=== PATIENT | male | born 1960 | race Caucasian/White ===

== ENCOUNTER → 2023-04-12 17:22 | Outpatient (REF) | payer OTHER, SELFPAY | LOC: MRI 17:22 | PROVIDERS: ATTENDING PHYSICIAN Specialist; FAMILY PHYSICIAN Family Medicine | DX: D18.03 Hemangioma of intra-abdominal structures (principal) | CPT/HCPCS: 74183; A9575 ==

== ENCOUNTER → 2023-09-19 17:28 | Outpatient (REF) | payer OTHER, SELFPAY | LOC: MRI 3T 17:28 | PROVIDERS: ATTENDING PHYSICIAN Psychiatry & Neurology Neurology; FAMILY PHYSICIAN Family Medicine | DX: R25.2 Cramp and spasm (principal); E53.8 Deficiency of other specified B group vitamins | CPT/HCPCS: 72141 ==

== ENCOUNTER 2024-02-20 06:18 | Day surgery (SDC) | payer OTHER, SELFPAY | END 2024-02-20 16:20 | disposition home or self-care (01) | LOC: GI 06:18 | PROVIDERS: ATTENDING PHYSICIAN Specialist; FAMILY PHYSICIAN Family Medicine | DX: Z12.11 Encounter for screening for malignant neoplasm of colon (principal); D12.3 Benign neoplasm of transverse colon; K56.2 Volvulus; K57.30 Diverticulosis of large intestine without perforation or abscess without bleeding; Z86.0101 Personal history of adenomatous and serrated colon polyps | CPT/HCPCS: 45385; 88305 ==

== ENCOUNTER → 2024-03-28 09:28 | Outpatient (REF) | payer OTHER, SELFPAY | LOC: REG 09:28 | PROVIDERS: ATTENDING PHYSICIAN Physician Assistant Medical; FAMILY PHYSICIAN Family Medicine | DX: R06.09 Other forms of dyspnea (principal); R42 Dizziness and giddiness | CPT/HCPCS: 71046 ==

== ENCOUNTER 2024-08-22 06:20 | Day surgery (SDC) | payer OTHER, SELFPAY | END 2024-08-22 11:37 | disposition home or self-care (01) | LOC: GI 06:20 | PROVIDERS: ATTENDING PHYSICIAN Specialist | DX: R12 Heartburn (principal); K31.7 Polyp of stomach and duodenum; K22.70 Barrett's esophagus without dysplasia; K31.89 Other diseases of stomach and duodenum; K20.90 Esophagitis, unspecified without bleeding; K31.A0 Gastric intestinal metaplasia, unspecified | CPT/HCPCS: 43239; 88305 ==

== ENCOUNTER 2024-08-24 09:31 | Emergency (ER) | payer OTHER, SELFPAY ==
[2024-08-24 09:40] VITALS: BP 128/80
[2024-08-24] MEDS: DILAUDID 0.5 MG IV (10:47)
[2024-08-24] MEDS: NSS 1000 IV (10:47)
[2024-08-24 10:58] LABS: % Basophils 0.2 % (0-2); % Eosinophils 0.7 % (0-6); % Immature Granulocytes 0.5 % (0-0.5); % Lymphocytes 9.3 % (20.5-51.1); % Monocytes 8.9 % (1.7-9.3); % Neutrophils 80.4 % (42.2-75.2); Absolute Eosinophils 0.1 10^3/uL (0-0.7); Absolute Immature Granulocytes 0.1 10^3/uL (0-0.05); Absolute Lymphocytes 1.4 10^3/uL (1.2-3.4); Absolute Monocytes 1.4 10^3/uL (0.1-0.6); Absolute Neutrophils 12.3 10^3/uL (1.4-6.5); Hematocrit 47.1 % (39.0-52.0); Hemoglobin 16.6 g/dL (13.0-18.0); Mean Corp Hgb Conc. 35.2 g/dL (33.0-37.0); Mean Corpuscular Hgb 29.1 pg (27.0-31.0); Mean Corpuscular Volume 82.5 fL (80.0-94.0); Mean Platelet Volume 9.9 fL (7.4-10.4); Nucleated Red Blood Cells % 0 % (-); Platelet Count 243 10^3/uL (130-400); Red Blood Cell Count 5.71 10^6/uL (4.70-6.10); Red Cell Dist. Width 13.1 % (11.5-14.5); White Blood Cell Count 15.2 10^3/uL (4.8-10.8)
[2024-08-24] MEDS: BENADRYL 12.5 MG IV (10:58)
[2024-08-24] MEDS: DECADRON 10 MG IV (10:58)
[2024-08-24 11:00] VITALS: BP 133/87
[2024-08-24 11:09] LABS: INR 0.95
--- NOTE | 2024-08-24 11:17 | ED.GENMED ---
History of Present Illness
General
Chief Complaint: Facial Problem
Source: patient
Exam Limitations: none
Time Seen by Provider: 08/24/24 10:18
Nursing documentation reviewed up to this point in time: agreed with
History of Present Illness
History of Present Illness:
see MDM
Past History
Past History
ED Past Medical History: None
ED Past Surgical History: None
Social History
Tobacco: Non-smoker
Personal:
Living: with family
Review of Systems
Review of Systems
Allergies reviewed?: Yes
All Other Systems: Not applicable
Phy Exam
Physical Exam
Physical Exam:
see MDM
Course
Orders/Labs/Results
Orders:
Orders
08/24/24 10:32
CT Neck With Iv Contrast Urgent
Comment:
Reason For Exam: concern for esophageal perf;
0.9% Sodium Chloride 1000 ml [Nss] 1,000 ml IV BOLUS
HYDROmorphone [Dilaudid] 0.5 mg IV NOW STA
08/24/24 10:39
CT Chest With Iv Contrast Urgent
Comment:
Reason For Exam: endoscopy; now with neck swelling; eval perf
08/24/24 10:44
Dexamethasone Sod Phosphate [Decadron] 10 mg IV NOW STA
Diphenhydramine [Benadryl] 12.5 mg IV NOW STA
08/24/24 10:49
Basic Metabolic Panel Urgent
Complete Blood Count/With Diff Urgent
Lactic Acid Urgent
PTT Urgent
Prothrombin Time Urgent
08/24/24 13:57
Amoxicillin 875 mg/Clav 125 mg [Augmentin 875 mg/125 mg] 1 tablet PO NOW STA
08/24/24 14:03
Mumps Virus IgM [S] Urgent
Abnormal Lab Results
08/24/24
10:49
WBC 15.2 H 10^3/uL
(4.8-10.8)
Abs Immat Gran (auto) 0.1 H 10^3/uL
(0-0.05)
Absolute Neuts (auto) 12.3 H 10^3/uL
(1.4-6.5)
Absolute Monos (auto) 1.4 H 10^3/uL
(0.1-0.6)
Neutrophils % 80.4 H %
(42.2-75.2)
Lymphocytes % 9.3 L %
(20.5-51.1)
08/24/24 10:49
08/24/24 10:49
Vital Signs
Initial and Last Documented VS:
Initial Vital Signs
Temp Pulse Resp BP Pulse Ox
37.1 C 79 18 128/80 97
08/24/24 09:40 08/24/24 09:40 08/24/24 09:40 08/24/24 09:40 08/24/24 09:40
Last Documented Vital Signs
Temp Pulse Resp BP Pulse Ox
37.1 C 84 19 139/99 93
08/24/24 09:40 08/24/24 14:00 08/24/24 14:00 08/24/24 14:00 08/24/24 14:00
MDM/Problems Addressed
Differential Diagnosis Includes:
see MDM
MDM/Problems Addressed:
Note:
CHIEF COMPLAINT(S)
Jaw swelling and pain
HISTORY OF PRESENT ILLNESS
The patient is a 64-year-old male with a history of gastroesophageal reflux disease, hiatal hernia, arthritis, and asthma, presenting with R sided jaw swelling and pain. The symptoms began the day after an endoscopy performed two days prior, for
evaluation of esophagitis and hiatal hernia. Initially, the patient felt as though it were a muscular strain in the jaw, which progressively worsened with swelling as the day continued. The pain is associated with difficulty swallowing (�hurts to
swallow�) and hoarseness. The patient denies fever, chills, ear discomfort, or respiratory difficulty. There is no history of recent illness. The patient did not take any pain medication for relief. His voice is hoarse, which he attributes to his
jaw pain and is not related to asthma. The patient�s skin color is notably pinkish, but it is consistent with his normal complexion. He has a history of past ear infections but states this current sensation does not resemble those experiences.
The patient does not recall using strong pain medication in the past and reports no known allergies. He denies being on any immunosuppressive medication.
ALLERGIES
None reported.
PAST MEDICAL HISTORY
- Gastroesophageal reflux disease
- Hiatal hernia
- Rheumatoid arthritis
- Asthma
IMMUNIZATION HISTORY
The patient states he received vaccinations in childhood, including MMR.
REVIEW OF SYSTEMS
- Ear, Nose, and Throat: Jaw pain, hoarseness, difficulty swallowing.
- Respiratory: No difficulty breathing.
- General: No fever, no chills.
PHYSICAL EXAM
Nursing notes reviewed and vital signs reviewed.
GENERAL: Alert , in no apparent distress
EYE: pupils equal and reactive
NECK: Supple
obvious R sided swelling submandibular near parotid region on the R with tenderness; mild erythema;
no obvious crepitus;
breathing normally
ENT: b/l TM s clear, mild trismus 2.5 fingers; no obvious parotid swelling, no sublingual swelling, no submental swelling; slightly horase voice; tolerating secretions
CARDIAC: Regular rate and rhythm, no edema
LUNGS: Clear breath sounds bilaterally, no acute respiratory distress, no wheezes/rales/rhonchi, occ cough
ABDOMEN: Soft, without focal tenderness, no r/g, no cvat, normal bowel sounds
NEUROLOGICAL: Alert and oriented, no focal neuro deficits
SKIN: Warm and dry, skin intact.
MUSCULOSKELETAL: No edema, well perfused.
PSYCH: Normal and appropriate interaction.
PLAN
- CT scan of the neck with contrast to evaluate the area of swelling.
- Initiate IV access for pain medication and blood work.
DIFFERENTIAL DIAGNOSIS
The Differential Diagnosis includes, in no particular order and is not limited to:
- Parotitis
- Parapharyngeal abscess
- Dental infection
- Submandibular gland infection
- Mumps
- Lymphadenopathy
- Angioedema
- Peritonsillar abscess
- Hematoma post-endoscopy
- Esophageal perforation (less likely)
Patient CT scan reviewed with him. Patient has a evidence of sialoadenitis and possibly parotitis. There is no obvious stone. There is no airway compromise. There is no collection. Patient actually noticeably appears improved likely secondary
to the Decadron used prior to CT scan. He feels less swollen and has less hoarseness to his voice. Patient advised to suck on sour candy, take ibuprofen with food for pain and inflammation and we will place him on Augmentin. Did send out a mumps
IgM
For outpatient follow-up
*Pulse Oximetry
SaO2: 92
Oxygen Mode of Delivery: Room air
*Critical Care Note
Total Time (30-74mins, 75-104mins- exclusive of procedures): Not Applicable
ED Attending Note
-
Portions of this chart may have been created with voice recognition software.� Occasional wrong word or��sound alike� substitutions may have occurred due to the inherent limitations of voice recognition software.
Discharge Plan
Departure
Patient Disposition: Home (Routine Discharge)
Date of Disposition: 08/24/24
Time of Disposition: 13:50
Patient with high blood pressure during this ER visit?: No
Condition: Fair
Covid-19: Not Applicable
Discharge Problem:
Acute bacterial sialadenitis
Instructions: Salivary Gland Infection (DC)
Prescriptions:
New
amoxicillin-pot clavulanate 875-125 mg tablet
1 tab PO BID Qty: 14 0RF
No Action
pantoprazole 40 mg Tablet,Delayed Release (Dr/Ec)
40 mg PO DAILY
montelukast [Singulair] 10 mg Tablet
10 mg PO DAILY
albuterol sulfate [ProAir HFA] 90 mcg/actuation Hfa Aerosol Inhaler
2 puff INHALATION QID PRN (Reason: wheezing)
fluticasone propionate 50 mcg/actuation [place],Suspension
1 spray INTRANASAL DAILY
budesonide-formoterol [Symbicort] 80-4.5 mcg/actuation Hfa Aerosol Inhaler
1 puff INHALATION DAILY
Referrals:
Terrie Russo MD [Family Provider, Family Practice]
Activity Restrictions/Additional Instructions:
Take Augmentin twice a day for the infection of your salivary gland. It could be mumps which is a contagious virus but self-limiting and usually people cleared on their own.. You should stay home for the next 3 to 4 days to be sure you are not
spreading it. You could also have a bacterial infection which is why working to get you at the antibiotic twice a day.
Suck on the sour candy to help promote salivation. You can take ibuprofen with food to be sure not to upset your stomach.
You can apply warm compresses to your neck as needed. Return for fever, worsening swelling, inability to swallow, inability to breathe, facial redness or any concerns
Interventions
Interventions:
*Risk Screen - Suicide Last Done: 08/24/24 09:40
*General Assessment Last Done: 08/24/24 09:40
*Neglect/Abuse Screening Last Done: 08/24/24 09:40
*ED- Fall Risk Assessment Last Done: 08/24/24 11:22
*ED COVID-19 Vaccine History Last Done: 08/24/24 11:22
*Nursing Disposition Last Done: 08/24/24 14:17
Discharge Date and Time
Discharge Date/Time: 08/24/24 14:17
Print Language: GERMAN
[2024-08-24 11:22] VITALS: BMI 23.1
[2024-08-24 11:28] LABS: Blood Urea Nitrogen 16 mg/dl (9-20); Calcium 9.6 mg/dl (8.4-10.2); Carbon Dioxide 24 mmol/L (22-30); Chloride 106 mmol/L (98-107); Estimated Creatinine Clearance 87 ml/min; Glucose 98 mg/dl (70-99); Sodium 138 mmol/L (135-145); eGFR > 60.00
[2024-08-24 11:29] LABS: APTT 26.3 Sec (23.4-35.0)
[2024-08-24 12:15] VITALS: BP 131/92
[2024-08-24 13:00] VITALS: BP 121/82
[2024-08-24 14:00] VITALS: BP 139/99
[2024-08-24] MEDS: AUGMENTIN 875 MG/125 MG 1 TABLET PO (14:10)
[2024-08-27 23:57] LABS: Mumps Virus IgM 0.18 IV (<=0.79)
== END 2024-08-24 14:17 | disposition home or self-care (01) ==
LOC: EMR 09:31
PROVIDERS: Physician Assistant; EMERGENCY PHYSICIAN Emergency Medicine; FAMILY PHYSICIAN Family Medicine
DX: K11.21 Acute sialoadenitis (principal); R22.0 Localized swelling, mass and lump, head; R13.10 Dysphagia, unspecified; R49.0 Dysphonia; K21.9 Gastro-esophageal reflux disease without esophagitis; K44.9 Diaphragmatic hernia without obstruction or gangrene; M19.90 Unspecified osteoarthritis, unspecified site; J45.909 Unspecified asthma, uncomplicated; K20.90 Esophagitis, unspecified without bleeding; M06.9 Rheumatoid arthritis, unspecified; Z98.890 Other specified postprocedural states; Z91.013 Allergy to seafood
CPT/HCPCS: 99284; 96361; 96374; 96375 ×2; 70491; 71260; 80048; 83605; 85025; 85610; 85730; 86735; Q9967

== ENCOUNTER → 2024-09-11 08:35 | Outpatient (REF) | payer OTHER, SELFPAY | LOC: MRI 3T 08:35 | PROVIDERS: ATTENDING PHYSICIAN Specialist; FAMILY PHYSICIAN Family Medicine | DX: D18.03 Hemangioma of intra-abdominal structures (principal) | CPT/HCPCS: 74183; A9575 ==

== ENCOUNTER 2024-09-19 06:20 | Day surgery (SDC) | payer OTHER, SELFPAY ==
[2024-09-09 08:41] LABS: Hematocrit 47.0 % (39.0-52.0); Hemoglobin 16.0 g/dL (13.0-18.0); Mean Corp Hgb Conc. 34.0 g/dL (33.0-37.0); Mean Corpuscular Volume 85.6 fL (80.0-94.0); Platelet Count 292 10^3/uL (130-400); Red Cell Dist. Width 13.1 % (11.5-14.5)
[2024-09-09 09:11] LABS: Blood Urea Nitrogen 17 mg/dl (9-20); Calcium 9.9 mg/dl (8.4-10.2); Carbon Dioxide 25 mmol/L (22-30); Chloride 102 mmol/L (98-107); Glucose 96 mg/dl (70-99); Potassium 4.4 mmol/L (3.5-5.1); Sodium 138 mmol/L (135-145); eGFR > 60.00
[2024-09-09 14:11] VITALS: BMI 22.9
--- NOTE | 2024-09-10 08:10 | PTCARENOTE ---
Ana @ Dr. Paz office notified of patients recent Chest/neck CT results
[2024-09-19] VITALS (12 sets, daily range): BP systolic 115–141; BP diastolic 70–90; BMI 22.9
[2024-09-19] MEDS: TYLENOL 1000 MG PO (06:31)
[2024-09-19] MEDS: NORMOSOL-R/PLASMALYTE-A 1000 IV (06:39)
== END 2024-09-19 12:25 | disposition home or self-care (01) ==
LOC: SDS 06:20
PROVIDERS: ATTENDING PHYSICIAN Surgery; FAMILY PHYSICIAN Family Medicine
DX: K40.90 Unilateral inguinal hernia, without obstruction or gangrene, not specified as recurrent (principal)
CPT/HCPCS: 49650; 36415; 80048; 85027; 93005; C1781

== ENCOUNTER → 2025-02-05 13:28 | Outpatient (REF) | payer OTHER, SELFPAY | LOC: REG 13:28 | PROVIDERS: ATTENDING PHYSICIAN Nurse Practitioner Adult Health | DX: R06.02 Shortness of breath (principal) | CPT/HCPCS: 71046 ==

== ENCOUNTER → 2025-02-09 10:15 | Outpatient (REF) | payer OTHER, SELFPAY ==
[2025-02-09 12:26] LABS: Blood Urea Nitrogen 11 mg/dl (9-20)
== END ==
LOC: REG 10:15
PROVIDERS: ATTENDING PHYSICIAN Nurse Practitioner Adult Health
DX: I26.99 Other pulmonary embolism without acute cor pulmonale (principal); R89.9 Unspecified abnormal finding in specimens from other organs, systems and tissues; R06.02 Shortness of breath
CPT/HCPCS: 36415; 71275; 82565; 84520; Q9967

== ENCOUNTER → 2025-02-11 06:43 | Outpatient (REF) | payer OTHER, SELFPAY | LOC: RAD 06:43 | PROVIDERS: ATTENDING PHYSICIAN Nurse Practitioner Adult Health; FAMILY PHYSICIAN Family Medicine | DX: J45.40 Moderate persistent asthma, uncomplicated (principal); R06.02 Shortness of breath | CPT/HCPCS: 93970 ==

== ENCOUNTER → 2025-02-18 07:39 | Outpatient (REF) | payer OTHER, SELFPAY | LOC: HWRCS 07:39 | PROVIDERS: ATTENDING PHYSICIAN Nurse Practitioner Adult Health; FAMILY PHYSICIAN Family Medicine | DX: R06.02 Shortness of breath (principal) | CPT/HCPCS: 93306 ==